=== PATIENT | female | born 1950 | race Caucasian/White ===

== ENCOUNTER 2022-09-19 14:36 | Inpatient (IN) | payer OTHER ==
[~2022-09-19] VITALS: Ht 160 cm; Wt 81.6 kg
[2022-09-22] MEDS ORDERED: ATORVASTATIN CA10 MG PO (08:44)
[2022-09-22] MEDS ORDERED: GLUMETZA500 MG PO (08:44)
[2022-09-22] MEDS ORDERED: AVAPRO300 MG PO (08:45)
[2022-09-26] MEDS ORDERED: ZANAFLEX2 MG (11:35)
[2022-09-26] MEDS ORDERED: HYDROCHLOROTHIA25 MG (11:35)
[2022-09-26] MEDS ORDERED: METFORMIN HCL500 M4 (11:35)
[2022-09-26] MEDS ORDERED: SULINDAC200 MG (11:35)
[2022-09-28] MEDS ORDERED: TRAM1TAB98 PO (13:21)
[2022-09-28] MEDS ORDERED: INTEGRA F CAPS1 EACH PO (13:21)
== END 2022-09-28 14:38 | disposition home or self-care (01) | DRG 331 ==
LOC: SURH 09-26 06:15 → O/R 09-26 06:15 → SURG 09-26 07:00 → SURH 09-26 15:46
PROVIDERS: ADMIT Surgery; ATTEND Surgery
PROC: 0DBP4ZZ Excision of Rectum, Percutaneous Endoscopic Approach (ICD-10-PCS; 2022-09-26)
PROC: 07BC4ZZ Excision of Pelvis Lymphatic, Percutaneous Endoscopic Approach (ICD-10-PCS; 2022-09-26)
PROC: 0DJD8ZZ Inspection of Lower Intestinal Tract, Via Natural or Artificial Opening Endoscopic (ICD-10-PCS; 2022-09-26)
PROC: 0DTN4ZZ Resection of Sigmoid Colon, Percutaneous Endoscopic Approach (ICD-10-PCS; principal; 2022-09-26 12:00)
DX: D12.5 Benign neoplasm of sigmoid colon (principal); R59.0 Localized enlarged lymph nodes; E11.9 Type 2 diabetes mellitus without complications; I11.9 Hypertensive heart disease without heart failure; Z20.822 Contact with and (suspected) exposure to COVID-19